=== PATIENT | female | born 1990 | race Caucasian/White ===

== ENCOUNTER 2022-09-09 14:45 | Emergency (ER) | payer BC, SELFPAY ==
--- NOTE | ~2022-09-09 | XR_ITS ---
EXAMINATION: XR foot LT min 3V DATE: 09/09/2022 15:11 INDICATION: Dorsal left foot pain TECHNIQUE: Dorsoplantar, two oblique and lateral views of the left foot were obtained. COMPARISON: None. FINDINGS: Alignment is normal. No fracture. Joint spaces are normal. Small plantar calcaneal spur. No periostea l reaction. Soft tissues are unremarkable. IMPRESSION: 1. No acute osseous abnormality. Reviewed, dictated and finalized at location A.
[2022-09-09 14:56] VITALS: BP 107/91; PULSE 108; RESP 18; TEMP 36.9; O2SAT 100
--- NOTE | 2022-09-09 15:04 | ED.EXTPRO ---
HPI - Extremity Problem General Chief complaint: Extremity Problem,Nontraumatic Stated complaint: Lt Foot Pain Source: patient Mode of arrival: ambulatory Limitations: no limitations History of Present Illness HPI Narrative: 32 y/o female presented for c/o left foot pain for one month, worse x1 week. Pain is mostly to the top of the mid foot, and to the ball of the foot when walking. States walking sends a sharp pain through the foot. Pain reported to the ball of the foot also when inverting the foot. Rates pain 4/10 at rest, 8/10 with walking. States pain started after walking at [employer], otherwise denies injury, over use, or change in activity. Has tried ice, rest and ibuprofen. Denies swelling, redness, bruising, or numbness, tingling or weakness of the foot. Hx stress fractures to the right foot. Related Data Home Medications Medication Instructions Recorded Confirmed fluticasone propionate 115 2 puff inhalation Q12H 09/09/22 09/09/22 mcg-salmeterol 21 mcg/actuation HFA inhaler (Advair HFA) montelukast 10 mg tablet 10 mg PO HS 09/09/22 09/09/22 (Singulair) norgestimate 0.25 mg-ethinyl 1 tablet PO DAILY 09/09/22 09/09/22 estradiol 35 mcg tablet (Estarylla) Allergies Allergy/AdvReac Type Severity Reaction Status Date / Time amoxicillin AdvReac Severe Swelling Verified 09/09/22 15:07 of Lip/Tongue/Throat Penicillins AdvReac Severe Swelling Verified 09/09/22 15:07 of Lip/Tongue/Throat cefdinir AdvReac Mild Hives Verified 09/09/22 15:08 Review of Systems Review of Systems: CONSTITUTIONAL: Denies body aches, fever, chills EYES: Denies visual changes ENT: Denies rhinorrhea, congestion CARDIOVASCULAR: Denies chest pain, palpitations, or edema. RESPIRATORY: Denies cough or dyspnea. GASTROINTESTINAL: Denies abdominal pain, nausea, vomiting, or diarrhea. SKIN: Denies rash, itching, or wounds. MUSCULOSKELETAL: Reports left foot pain Denies back pain, joint pain, or myalgia. NEUROLOGIC: Denies headache, numbness, tingling, or weakness. All systems reviewed & are unremarkable except as noted in HPI and below PMFSH Past Medical History Medical History (Updated 09/09/22 @ 15:24 by Dania Costello APRN) Asthma Comments At time of signature, I have reviewed and agree with nursing past medical, surgical, social and family history unless otherwise noted. Please see nursing chart for further information. There is no relevant family history pertinent to the presenting complaint Exam Narrative: GENERAL: Well-appearing, and in no acute distress. HEAD: Normocephalic, atraumatic. EYES: conjunctivae clear NECK: Supple. CHEST: Speaks in full sentences. No respiratory distress. HEART: Regular rate and rhythm. Normal and equal peripheral pulses. EXTREMITIES: Left foot has normal strength and sensation, normal range of motion but reports pain to midfoot with with flexion/extension/rotation of ankle. Foot tenderness with palpation to the plantar surface of all MTPs, tenderness over dorsal aspect of the midfoot. No edema or ecchymosis, No open wounds, skin tenting, or obvious deformity; alignment normal, pulse palpable and equal bilaterally, skin warm, dry, pink. Capillary refill less than 3 seconds. SKIN: Warm, dry, no rash. NEURO: Alert and oriented x3. PSYCH: Normal mood and affect Course Course Emergency Course: Patient is aware of diagnosis, understands and agrees to treatment plan. Anticipatory guidance given. Patient agrees to follow-up as directed and is aware of reasons to seek care at the emergency department. Portions of this record may have been created with voice recognition software Level of Care: Express Care Visit Vital Signs Vital signs: Vital Signs Temperature 98.5 F 09/09/22 14:56 Pulse Rate 108 H 09/09/22 14:56 Respiratory Rate 18 09/09/22 14:56 Blood Pressure 107/91 H 09/09/22 14:56 Pulse Oximetry 100 09/09/22 14:56 Oxygen [employer]
== END 2022-09-09 15:26 | disposition home or self-care (01) ==
PROVIDERS: Emergency Provider Nurse Practitioner Family
DX: M79.672 Pain in left foot (principal); J45.909 Unspecified asthma, uncomplicated
CPT/HCPCS: 73630; 99213; G0463

== ENCOUNTER 2023-01-20 16:28 | Outpatient (CLI) | payer OTHER, SELFPAY ==
--- NOTE | ~2023-01-20 | US_ITS ---
EXAMINATION: US thyroid DATE: 01/20/2023 16:40 INDICATION: Enlarged thyroid. TECHNIQUE: Multiple ultrasound images of the thyroid were obtained. COMPARISON: None. FINDINGS: The right thyroid lobe measures 4.9 x 1.3 x 2.0 cm. The left thyroid lobe measures 4.8 x 1.0 x 1.4 c m. There is normal echotexture and echogenicity throughout the thyroid gland. No discrete nodules id entified. Normal vascular flow is present. IMPRESSION: 1. Normal thyroid. Reviewed, dictated and finalized at location E. [employer]ING SUPERVISOR IMPRESSION: 1. Normal thyroid.
== END 2023-01-20 16:29 ==
PROVIDERS: PCP Family Medicine; Visit Provider Family Medicine
DX: E05.90 Thyrotoxicosis, unspecified without thyrotoxic crisis or storm (principal)
CPT/HCPCS: 76536

== ENCOUNTER 2023-05-04 07:43 | Outpatient (CLI) | payer OTHER, SELFPAY ==
--- NOTE | ~2023-05-04 | US_ITS ---
Limited Abdominal Sonogram: Real-time sonographic imaging of the right upper quadrant was performed. Clinical History: Right upper quadrant pain Findings: The liver appears normal with no evidence of mass lesion or bile duct dilatation. Main por brittney vein demonstrates normal direction of flow. The gallbladder is well distended, and contains small , echogenic gallstones. No gallbladder wall thickening evident. The common bile duct measures 3 mm. The visualized pancreas, aorta, and IVC are unremarkable. Right kidney measures 11.1 cm in length, wi thout evidence of hydronephrosis. Impression: Cholelithiasis. Reviewed, dictated and finalized at location . Impression: Cholelithiasis.
== END 2023-05-04 07:44 ==
LOC: MICIMG 07:44
PROVIDERS: PCP Nurse Practitioner Family; Visit Provider Nurse Practitioner Family
DX: R10.11 Right upper quadrant pain (principal); K80.20 Calculus of gallbladder without cholecystitis without obstruction
CPT/HCPCS: 76705

== ENCOUNTER 2023-06-12 12:12 | Emergency (ER) | payer OTHER, SELFPAY ==
--- NOTE | ~2023-06-12 | US_ITS ---
US abdomen limited INDICATION: Right upper quadrant pain. Gallstones. PROCEDURE: Realtime right upper abdominal ultrasound. COMPARISON: No prior studies for comparison. FINDINGS: Pancreas not visualized due to bowel gas. Liver echotexture is normal without focal mass o r intrahepatic biliary dilatation. There is normal directional flow in the portal vein. There are multiple stones. No gallbladder wall thickening or pericholecystic fluid. Common bile duct measures 3 mm. No sonographic Daigle's sign. IMPRESSION: 1: Cholelithiasis. Reviewed, dictated and finalized at location B. IMPRESSION: 1: Cholelithiasis.
[2023-06-12 12:35] VITALS: BP 138/88; PULSE 82; RESP 18; TEMP 36.5; O2SAT 99
--- NOTE | 2023-06-12 12:41 | ED.ABDPAIN ---
HPI - Abdominal Pain General Chief Complaint: Abdominal Pain <ARNOL Strickland Last Filed: 06/12/23 12:48> Stated Complaint: gallbladder attack <ARNOL Strickland Last Filed: 06/12/23 12:48> Time Seen by Provider: 06/12/23 12:42 <ARNOL Strickland Last Filed: 06/12/23 12:48> Focused HPI: Patient is a 32 y/o female who presents With report of right upper quadrant abdominal pain. Patient has history of known gallstones and states she is scheduled to undergo cholecystectomy in July at [facility]. States this morning around 7:00 a.m. with pain in her right upper quadrant. Radiates around her right mid back. She has not tried anything for pain. Feels consistent with previous gallbladder attacks. Reports nausea, denies vomiting. Denies diarrhea, constipation, fevers. GENERAL: Well-appearing, morbidly obese with BMI of 41.4, and in no acute distress. HEAD: Normocephalic, atraumatic. CHEST: Clear to auscultation. ?No respiratory distress. HEART: Regular rate and rhythm.? ABD: TTP in R upper abdomen, no rebound. No epigastric tenderness. NEURO: ?Alert and oriented x3. Patient screened in triage and initial orders placed.? ?Additional care and disposition to be based upon?diagnostic testing and treatment. <Cynthia Raines PA-C - Last Filed: 06/12/23 12:48> Source: patient <ARNOL Strickland Last Filed: 06/12/23 12:48> Mode of arrival: ambulatory <ARNOL Strickland Last Filed: 06/12/23 12:48> Limitations: no limitations <ARNOL Strickland Last Filed: 06/12/23 12:48> History of Present Illness HPI narrative: 32-year-old female presenting to the emergency department for evaluation of worsening right upper quadrant pain. Patient states she does have known gallstones and is going to have a since July. Patient states last night she had orange chicken with fried rice and then this morning woke up with right upper quadrant abdominal pain. Patient was treated with Tylenol upon arrival emergency department. On re-evaluation patient declined any additional medications for pain control and patient was well-appearing. <Marcial Be MD - Last Filed: 06/12/23 22:41> Related Data Home Medications: Home Medications Medication Instructions Recorded Confirmed albuterol sulfate 90 mcg/actuation 1 inh inhalation Q4H 01/17/23 05/17/23 aerosol inhaler cetirizine 10 mg tablet (Zyrtec) 10 mg PO DAILY PRN 01/17/23 05/17/23 ipratropium 0.5 mg-albuterol 3 mg 3 ml inhalation QID PRN 01/17/23 05/17/23 (2.5 mg base)/3 mL nebulization soln norethindrone (contraceptive) 0.35 0.35 mg PO DAILY 04/26/23 05/17/23 mg tablet <Cynthia Raines PA-C - Last Filed: 06/12/23 12:48> Allergies/Adverse Reactions: Allergies Allergy/AdvReac Type Severity Reaction Status Date / Time amoxicillin AdvReac Severe Swelling Verified 06/12/23 12:13 of Lip/Tongue/Throat Penicillins AdvReac Severe Swelling Verified 06/12/23 12:13 of Lip/Tongue/Throat cefdinir AdvReac Mild Hives Verified 06/12/23 12:13 clavulanic acid AdvReac Mild Hives Verified 06/12/23 12:13 [From Augmentin] <Cynthia Raines PA-C - Last Filed: 06/12/23 12:48> Review of Systems Review of Systems: All systems reviewed & are unremarkable except as noted in HPI and below <Marcial Be MD - Last Filed: 06/12/23 22:41> PMFSH Past Medical History Medical History: Medical History ) Allergies Annual physical exam Asthma Enlarged thyroid IBS (irritable bowel syndrome) Screening cholesterol level Screening for thyroid disorder <Cynthia Raines PA-C - Last Filed: 06/12/23 12:48> Family History Family History: Family History ) Father Hypertension Mother Asthma Hypertension Depress
[2023-06-12] MEDS: ACETAMINOPHEN 500 MG TABLET 1000 MG PO (12:49)
[2023-06-12] MEDS: ONDANSETRON HCL ODT 4 MG TABLET PO (12:49)
[2023-06-12 13:07] LABS: Basophils Absolute Auto 0.1 K/mm3 (0.0-0.1); Basophils Percent Auto 0.7 % (0.2-1.2); Eosinophils Absolute Auto 0.2 K/mm3 (0-0.3); Eosinophils Percent Auto 2.1 % (0-4.4); Hematocrit 41.4 % (37.0-47.0); Hemoglobin 13.4 g/dL (12.0-15.0); Immature Granulocyte Absolute 0.05 K/mm3 (0.00-0.031); Immature Granulocyte Percent A 0.5 % (0-0.5); Lymphocytes Absolute Auto 2.95 K/mm3 (0.9-3.2); Lymphocytes Percent Auto 26.9 % (18.3-44.2); Mean Corpuscular HGB Conc 32.4 g/dl (32-36); Mean Corpuscular Hemoglobin 27.3 pg (26-34); Mean Corpuscular Volume 84.5 fl (80-100); Mean Platelet Volume 10.9 fl (7.4-10.4); Monocytes Absolute Auto 0.6 K/mm3 (0.1-0.6); Monocytes Percent Auto 5.5 % (2.6-8.5); Neutrophils Absolute Auto 7.1 K/mm3 (1.3-6.7); Neutrophils Percent Auto 64.3 % (45.5-73.1); Platelet Count Result 350 k/mm3 (150-375); Red Cell Distribution Width 13.7 % (11.5-14.5)
[2023-06-12 13:10] LABS: Appearance Urine Clear (Clear); Bacteria Urine Rare /hpf; Bilirubin Urine Negative (Negative); Blood Urine Negative (Negative); Color Urine Yellow (Yellow); Glucose Urine UA Negative (Negative); Ketones Urine Negative (Negative); Leukocyte Esterase Ur Trace LEU/UL (Negative); Nitrate Urine Negative (Negative); Non Pathogenic Casts 0-2; Protein Urine Negative (Negative); RBC Urine 0-2 /hpf (0-2); Specific Grav Ur 1.009 (1.001-1.035); Squamous Epithelial Cell Urine Occasional /hpf (Few); Urobilinogen Urine 0.2 mg/dL (<2.0); WBC Urine 0-5 /hpf (0-3); pH Urine 5.5 (5.0-9.0)
[2023-06-12 13:17] LABS: Alanine Aminotransferase 23 U/L (6-35); Albumin Level 4.3 g/dL (3.5-5.1); Alkaline Phosphatase 72 U/L (38-126); Anion Gap 5 mmol/L (4-12); Aspartate Amino Transferase 21 U/L (14-36); Bilirubin,Total 0.5 mg/dL (0.2-1.3); Blood Urea Nitrogen 14 mg/dL (7-17); Carbon Dioxide 28 mmol/L (22-30); Chloride 103 mmol/L (98-107); Estimated CRCL calculation 143 ml/min; Estimated Glomerular Filt Rate > 60; Glucose 96 mg/dL (65-110); Lipase 42 U/L (23-300); Potassium 3.8 mmol/L (3.4-5.0); Sodium 136 mmol/L (137-145)
[2023-06-12 13:18] LABS: Add Urine Microscopic? YES
== END 2023-06-12 15:10 | disposition home or self-care (01) ==
PROVIDERS: Physician Assistant; Emergency Provider Emergency Medicine; PCP Nurse Practitioner Family
DX: K80.70 Calculus of gallbladder and bile duct without cholecystitis without obstruction (principal); J45.909 Unspecified asthma, uncomplicated; E04.9 Nontoxic goiter, unspecified; K58.9 Irritable bowel syndrome, unspecified; Z90.49 Acquired absence of other specified parts of digestive tract
CPT/HCPCS: 36415; 76705; 80053; 81001; 81025; 83690; 85025; 99284; A9270

== ENCOUNTER 2023-09-22 00:59 | Day surgery (SDC) | payer OTHER, SELFPAY ==
[2023-09-19 14:24] VITALS: BMI 42.7
--- NOTE | 2023-09-19 14:33 | PC.NURSE ---
Report to the Outpatient Waiting Room, entrance under the green pavilion located off [facility], at time __1100 on date __[id number] . Planned Procedure Time: __1300_(1PM) . Time changes happen often and if your time is changed the preop area will call you the afternoon before. - You and your visitor will be asked to self-screen and do not enter if you have any COVID symptoms. - A mask is optional within the hospital at this time. Patients may have clear liquids (water, carbonated beverages, clear teas, apple juice) until 3 hours prior to surgery with a maximum of 20 ounces. (STOP AT 10:00AM) - No food from midnight until time of surgery - Take the following medications with a SIP of water the morning of surgery: ____Albuterol, Certirizine, Trelegy, control pill DO NOT STOP ANY OF YOUR OTHER PRESCRIPTION MEDICATIONS PRIOR TO SURGERY ?EXCEPT THE FOLLOWING Medications to discontinue per physician PLEASE CHECK WITH YOUR PHYSICIAN IF YOU NEED TO TAKE YOUR PRN IBUPROFEN. Please no make-up, nail uzbek, hairspray, perfume, deodorant, or body powder the day of surgery. No jewelry (including any body piercings) or valuables the day of surgery, leave them at home. Please take a shower or bath the night before, or the morning of, surgery with an antibacterial soap. Wear comfortable, loose fitting clothing. - Jewelry must be removed prior to entering the operating room. Rings and piercings that are not removed may be cut off. - The hospital will not accept responsibility for valuables. - Please leave all valuables, including medications, at home the day of surgery. If you are going home after surgery, a licensed water tanker driver must drive you home. - NO public transportation without another adult if you receive anesthesia. - We recommend that an adult stay with you for 24 hours following discharge. - We also recommend that you do not drive, make important decision, drink alcoholic beverages, or take any drugs that were not prescribed by your health care provider for at least 24 hours after your discharge time. Follow any additional instructions given to you from your surgeon. If you or anyone in your household have experienced Covid symptoms in the past week, please notify your surgeon or the nurse liaison at the phone number below for possible testing. Telephone instructions given to __PATIENT/SAMANTA and asked if any additional questions and then verbalized understanding. Patient advised to call surgeon office or pre surgery nurse liaison [phone] if any additional questions.
[2023-09-22 11:05] VITALS: BP 118/81; PULSE 82; RESP 20; TEMP 36.1; O2SAT 97
--- NOTE | 2023-09-22 11:21 | WPDANESEPPF ---
Anes - Initial Pre Proc Eval Procedure: Operation Date: 09/22/23 13:00 Proposed Procedures p Loop Electrical Excision Procedure - Brendan Dorantes MD Date/Time: 09/22/23 11:21 Surgeon: Brendan Dorantes MD Pre Op Diagnosis: cin2 moderate dysplasia Patient Data Age: 33 Gender: F Height: 1.75 m Weight: 133.7 kg Last Vital Signs Temp 36.1 C L 09/22/23 11:05 Pulse 82 09/22/23 11:05 Resp 20 09/22/23 11:05 BP 118/81 09/22/23 11:05 Pulse Ox 97 09/22/23 11:05 O2 Del Method Room Air 09/22/23 11:05 Allergies Allergy/AdvReac Type Severity Reaction Status Date / Time amoxicillin AdvReac Severe Swelling Verified 09/22/23 11:01 of Lip/Tongue/Throat clavulanic acid AdvReac Severe Swelling Verified 09/22/23 11:01 [From Augmentin] of Lip/Tongue/Throat Penicillins AdvReac Severe Swelling Verified 09/22/23 11:01 of Lip/Tongue/Throat cefdinir AdvReac Mild Hives Verified 09/22/23 11:01 Home Medications Medication Instructions Recorded Confirmed Type ibuprofen 800 mg tablet 800 mg PO TID PRN pain #20 tabs 09/09/22 09/22/23 Rx albuterol sulfate 90 mcg/actuation 1 inh inhalation Q4H PRN Wheezing 01/17/23 09/19/23 History aerosol inhaler cetirizine 10 mg tablet (Zyrtec) 10 mg PO DAILY 01/17/23 09/22/23 History ipratropium 0.5 mg-albuterol 3 mg 3 ml inhalation QID PRN Shortness 01/17/23 09/19/23 History (2.5 mg base)/3 mL nebulization Of Breath Or Wheezing soln montelukast 10 mg tablet 10 mg PO HS #90 tabs 01/17/23 09/22/23 Rx (Singulair) fluticasone fur. 100 mcg-umeclid 1 inh inhalation DAILY 07/17/23 09/22/23 History 62.5 mcg-vilant 25 mcg inhalat.powder (Trelegy Ellipta) norgestimate 0.25 mg-ethinyl 1 tablet PO DAILY #84 tabs 08/11/23 09/22/23 Rx estradiol 35 mcg tablet (Sprintec (28)) Patient hx anesthesia problems: none Family hx anesthesia problems: none Results Review: All pre-operative results and documents have been reviewed as part of the pre-operative evaluation. [facility] Past Medical History Medical History Allergies Annual physical exam Asthma control counseling Enlarged thyroid IBS (irritable bowel syndrome) Screening cholesterol level Screening for thyroid disorder Surgical History Surgical History No history of previous surgery Family History Family History Father Hypertension Mother Asthma Hypertension Depression Thyroid disorder Grandparent Skin cancer Diabetes mellitus Hypertension Heart disease Social History Social History Smoking status: Never smoker Second hand tobacco smoke exposure: No Alcohol intake: current Drinks per week: 2 Substance use: never Substance use type: does not use Lack of Transportation: No Lack of Food: Never True Current Housing: I Have Housing Concerned About Future Housing: No Difficulty Paying Gas/Electric Bills: No Difficulty Paying for Meds: No Currently Unemployed: No Education: Don't Know Difficulty w/ Childcare or Family Care: No Living arrangements: with friend(s) Additional living arrangements comments: lives with s.o. 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
[2023-09-22] MEDS: ACETAMINOPHEN 500 MG TABLET 1000 MG PO (11:22)
--- NOTE | 2023-09-22 11:53 | WPDHPUPDATE1 ---
History and Physical Update Update Date/Time: 09/22/23 11:53 History and Physical has been reviewed, including an updated exam of the patient. There are NO changes in the patient's condition. Risks, benefits, and alternatives have been discussed and questions answered. Patient agrees to proceed with procedure.
[2023-09-22 11:56] LABS: BEDSIDEPREGUCG Negative
[2023-09-22] MEDS: LACTATED RINGERS 1,000 ML 30 ML IV CONT (12:00)
--- NOTE | 2023-09-22 12:01 | WPDHPUPDATE1 ---
History and Physical Update Update Date/Time: 09/22/23 12:01 History and Physical has been reviewed, including an updated exam of the patient. There are NO changes in the patient's condition. Risks, benefits, and alternatives have been discussed and questions answered. Patient agrees to proceed with procedure.
[2023-09-22] MEDS: LIDO 1%/EPINEPHRINE 1:100,000 20 ML VIAL INFILTRATE (12:23)
[2023-09-22] MEDS: IODINE/POTASSIUM IODIDE 8 ML SOLUTION TOPICAL (12:23)
[2023-09-22] MEDS: ceFAZolin 3 GM/D5W 100 ML 100 ML IVPB (12:23)
[2023-09-22] MEDS: KETOROLAC 30 MG/ML VIAL (*BKC) IV PUSH (12:46)
[2023-09-22 12:50] VITALS: BP 108/61; PULSE 85; RESP 18; O2SAT 100
[2023-09-22 13:19] VITALS: BP 118/77; PULSE 79; RESP 18
--- NOTE | 2023-09-22 13:26 | W.PM.PROC2 ---
Procedure Note - Detailed Date of Procedure 09/22/23 Pre-op Diagnosis cin2 moderate dysplasia Post-op Diagnosis Same Procedure Performed Loop electrosurgical excision procedure Surgeon Brendan Dorantes MD Anesthesia General and Local Indications THOMPSON 2 on cervical colposcopy biopsy Findings small hypopigmentation with Lugols at approximately 5:00 position Description of Procedure The patient was taken to the OR where adequate IV sedation was administered. She was then prepped and draped in the usual sterile fashion and placed in the dorsal lithotomy position. A Graves speculum was placed in the vagina. Lugol?s solution was painted along the entire cervix and vaginal wall. Areas of non-uptake were noted to be around the squamocolumnar junction at 5:00 a.m. position. 10 cc of lidocaine with epinephrine was injected at surgical site. The large loop electrode was used to remove the anterior or top portion of the cervix and a smaller area to include all of hypopigmented area was removed to the right of this. The smallest loop electrode was used to obtain a top hat for excision of the endocervix. The bed of the excised cervical tissue along the cervix was cauterized using the roller ball. Hemostasis was noted. All instruments were removed from vagina at this point. The patient tolerated the procedure well without complication and was taken to the recovery room in stable condition. Estimated Blood Loss 5 Drains No Packing No Pathology Yes ( LEEP ecto and endocervical pass) Complications No immediate complications Condition Stable Disposition Same day [facility] Billing Surgery - Charge Forward: Surgery Billing
== END 2023-09-22 13:45 | disposition home or self-care (01) ==
PROVIDERS: PCP Nurse Practitioner Family; Visit Provider Obstetrics & Gynecology
PROC: 0UBC7ZZ Excision of Cervix, Via Natural or Artificial Opening (ICD-10-PCS; CPT 57522; principal; 2023-09-22 13:00)
DX: N87.1 Moderate cervical dysplasia (principal); N72 Inflammatory disease of cervix uteri; J45.909 Unspecified asthma, uncomplicated; Z79.51 Long term (current) use of inhaled steroids; E66.01 Morbid (severe) obesity due to excess calories; Z68.41 Body mass index [BMI] 40.0-44.9, adult
CPT/HCPCS: 57522; 88307; 88342; A9270; J0690; J1100; J1885; J2250; J2405; J2704; J3010; J7120